=== PATIENT | male | born 2005 | race Caucasian/White ===

== ENCOUNTER 2024-08-13 10:40 | Emergency (ER) | payer BC, OTHER ==
[2024-08-13] MEDS ORDERED: Iopamidol-370 76% 500 ML MDV (1 ML CHARGE) ONE (10:46)
[2024-08-13 11:13] LABS: #Basophils 0.04 10x3/uL (0.0-0.2); %Basophils 0.5 % (0.0-1.0); %Eosinophils 4.1 % (0.0-10.0); %Lymphocytes 39.3 % (28.0-48.0); %Monocytes 10.5 % (0.0-4.0); %Neutrophils 45.4 % (31.0-61.0); Hematocrit 49.1 % (42.0-52.0); Hemoglobin 16.5 g/dL (14.0-18.0); Mean Corpuscular HGB CONC 33.6 g/dL (32.0-36.0); Mean Corpuscular Hemoglobin 29.7 pg (25.0-35.0); Mean Corpuscular Volume 88.3 fL (78.0-98.0); Mean Platelet Volume 9.8 fL (7.4-10.4); Platelet Count 287 10x3/uL (130-400); RBC Distribution Width 13.2 % (11.5-14.5); Red Blood Cell (RBC) Count 5.56 mill/uL (4.00-5.20)
[2024-08-13] MEDS ORDERED: Ketorolac Tromethamine 30 MG (1 mL) VIAL ONE (11:25)
[2024-08-13] MEDS ORDERED: CEFAZOLIN 1 GM VIAL ONE (11:25)
[2024-08-13] MEDS ORDERED: Sodium Chloride 0.9% 100 ML ONE (11:26)
[2024-08-13] MEDS ORDERED: Boostrix 0.5 ML (Tdap) VIAL (>/=7 yrs of age) ONE (11:26)
[2024-08-13 11:29] LABS: ALT (SGPT) 31 U/L (8-55); AST (SGOT) 25 U/L (5-34); Albumin 4.2 g/dL (3.5-5.0); Alkaline Phosphatase 47 U/L (50-130); Anion Gap 13 mmol/L (10-20); BUN (Urea Nitrogen) 17 mg/dL (8.9-20.6); Bilirubin, Total 0.6 mg/dL (0.2-1.2); Calc. Creatinine Clearance 0 mL/min (70-130); Calcium 9.6 mg/dL (7.8-10.44); Carbon Dioxide 25 mmol/L (22-29); Chloride 107 mmol/L (98-107); Estimated GFR 101; Globulin 2.8 g/dL (2.4-3.5); Glucose 118 mg/dL (70-105); Lipase 36 U/L (8-78); Potassium 4.1 mmol/L (3.5-5.1); Sodium 141 mmol/L (136-145)
[2024-08-13 11:40] LABS: Troponin I Less than 0.010 ng/mL (< 0.028)
[2024-08-13 11:50] LABS: PTT 28.8 sec (22.9-36.1); Prothrombin Time 13.1 sec (12.0-14.7)
[2024-08-13] MEDS ORDERED: Acetaminophen 500 MG TAB ONE (11:50)
[2024-08-13] MEDS ORDERED: Lidocaine 1% PF 5 ML VIAL ONE (12:34)
== END 2024-08-13 13:25 | disposition home or self-care (01) ==
LOC: ERS 10:40
DX: S02.40DA Maxillary fracture, left side, initial encounter for closed fracture (principal); S01.112A Laceration without foreign body of left eyelid and periocular area, initial encounter; V23.49XA Other motorcycle driver injured in collision with car, pick-up truck or van in traffic accident, initial encounter; Z23 Encounter for immunization
CPT/HCPCS: 12013; 70450; 70486; 71045; 71260; 72125; 72170; 74177; 76376; 80053; 83690; 84484; 85025; 85610; 85730; 90471; 90715; 93005; 96374; 96375; G0390; J0690; J1885; Q9967